=== PATIENT | female | born 1945 | race Caucasian/White ===

== ENCOUNTER → 2018-05-04 | Outpatient (CLI) | payer MEDICARE, BC | LOC: RAD 10:27 → MAMMO 10:45 → RAD 10:45 | DX: M81.0 Age-related osteoporosis without current pathological fracture (principal); M85.852 Other specified disorders of bone density and structure, left thigh; M85.851 Other specified disorders of bone density and structure, right thigh ==

== ENCOUNTER → 2018-11-03 | Outpatient (CLI) | payer MEDICARE, BC | LOC: RAD 09:43 | DX: R09.81 Nasal congestion (principal) ==

== ENCOUNTER 2019-04-18 10:30 | Outpatient (RCR) | payer MEDICARE, BC | END 2019-04-19 | disposition home or self-care (01) | LOC: CARDREHAB | DX: Z48.812 Encounter for surgical aftercare following surgery on the circulatory system (principal); Z95.2 Presence of prosthetic heart valve ==

== ENCOUNTER 2019-06-20 10:30 | Outpatient (RCR) | payer MEDICARE, BC | END 2019-07-26 | disposition home or self-care (01) | LOC: CARDREHAB | DX: Z48.812 Encounter for surgical aftercare following surgery on the circulatory system (principal); Z95.2 Presence of prosthetic heart valve ==